=== PATIENT | female | born 1960 | race Caucasian/White ===

== ENCOUNTER → 2018-08-06 | Outpatient (CLI) | payer OTHER ==
--- NOTE | 2018-08-13 08:21 | Diagnostic Imaging Report ---
#[id number] - [id number] #BILATERAL DIGITAL SCREENING MAMMOGRAM WITH CAD: 08/06/2018 CLINICAL: Routine screening. Comparison is made to exams dated: 07/21/2017 mammogram and 01/02/2015 mammogram - [facility] [place]. Current study contains 4 films. The tissue of both breasts is heterogeneously dense. This may lower the sensitivity of mammography. Current study was also evaluated with a Computer Aided Detection (CAD) system. There are benign calcifications in the left breast. No significant masses, calcifications, or other findings are seen in either breast. There has been no significant interval change. IMPRESSION: BENIGN There is no mammographic evidence of malignancy. A 1 year screening mammogram is recommended. The patient will be notified by letter of the results. Marbin mason/debra:08/12/2018 12:24:03 Plow Mechanic: Amalia COMER(R)(M), [facility] letter sent: Compared to Prior B9 Mammogram BI-RADS: 2 Benign
== END ==
LOC: MAMMO 13:14
PROVIDERS: ATTEND Internal Medicine
DX: Z12.31 Encounter for screening mammogram for malignant neoplasm of breast (principal)
CPT/HCPCS: 77067

== ENCOUNTER → 2019-07-06 | Outpatient (CLI) | payer OTHER ==
--- NOTE | 2019-07-06 16:52 | Diagnostic Imaging Report ---
#[id number] - [id number] #UNILATERAL LEFT DIGITAL DIAGNOSTIC MAMMOGRAM WITH CAD WITH SPOT COMPRESSION AND MAGNIFICATION: 07/06/2019 Comparison is made to exams dated: 06/23/2019 mammogram, 08/06/2018 mammogram, 07/21/2017 mammogram, 07/12/2016 mammogram, 01/02/2015 mammogram and 12/28/2013 mammogram - [facility]. The tissue of the left breast is heterogeneously dense. This may lower the sensitivity of mammography. Current study was also evaluated with a Computer Aided Detection (CAD) system. There are grouped heterogeneous calcifications in the left breast at 11 o'clock middle depth. These are seen in additional views. These are increased in size from prior screening mammograms of 2017 and 2016. No other significant masses or calcifications are seen in the breast. IMPRESSION: SUSPICIOUS OF MALIGNANCY The grouped heterogeneous calcifications in the left breast are suspicious of malignancy. A stereotactic biopsy is recommended. A phone call was made to the physician's office. The patient will be contacted by the Mammography Department to schedule this appointment. CHEY BUTLER M.D. kw/:07/06/2019 15:44:17 [employer] [facility]: Amalia GONZALES)(Yamila), [facility] letter sent: Biopsy Required Mammogram BI-RADS: 4 Suspicious abnormality
== END ==
LOC: MAMMO 09:30
PROVIDERS: ATTEND Internal Medicine
DX: R92.1 Mammographic calcification found on diagnostic imaging of breast (principal)

== ENCOUNTER → 2024-06-29 | Day surgery (SDC) | payer BC, OTHER ==
[~2024-06-29] MED LIST: GABAPENTIN300 MG PO; LEVOTHYROXINE88 MCG PO; LIPITOR10 MG PO; MELOXICAM7.5 MG PO; MOUNJARO5 MG/0.5 M SC; OMEPRAZOLE40 MG PO
[2024-06-29] MEDS: LACTATED RINGER'S 1,000 ML ONE (10:41)
[2024-06-29 13:10] VITALS: BP 132/81; PULSE 68; RESP 18; O2SAT 98
== END | disposition home or self-care (01) ==
LOC: OR 10:28
PROVIDERS: ATTEND Internal Medicine Gastroenterology
DX: Z09 Encounter for follow-up examination after completed treatment for conditions other than malignant neoplasm (principal); D12.4 Benign neoplasm of descending colon; K57.30 Diverticulosis of large intestine without perforation or abscess without bleeding; K64.8 Other hemorrhoids; K21.9 Gastro-esophageal reflux disease without esophagitis; E78.5 Hyperlipidemia, unspecified; E03.9 Hypothyroidism, unspecified; Z88.8 Allergy status to other drugs, medicaments and biological substances; Z91.048 Other nonmedicinal substance allergy status; Z01.810 Encounter for preprocedural cardiovascular examination; Z79.1 Long term (current) use of non-steroidal anti-inflammatories (NSAID); Z79.85 Long-term (current) use of injectable non-insulin antidiabetic drugs; Z79.899 Other long term (current) drug therapy
CPT/HCPCS: 45385; 93005; J7121

== ENCOUNTER → 2024-08-17 | Day surgery (SDC) | payer OTHER ==
[~2024-08-17] MED LIST changes: +FENTANYL CITRATE/PF 100MCG/2 ML INJ ONE; +GLYCOPYRROLATE INJ 0.2 MG/ML VIAL ONE; +HYOSCYAMINE SULFATE 0.5 MG/ML INJ ONE; +LIDOCAINE HCL 2% LOCAL INJ 5 ML SDV VIAL INJ ONE; +METOCLOPRAMIDE HCL 10 MG/2ML VIAL ONE; +PROPOFOL IV EMULSION 0 ML IV ONE; +PROPOFOL IV EMULSION 10 MG/ML 20 ML VIAL ONE
[2024-08-17] MEDS: LACTATED RINGER'S 1,000 ML ONE (13:03)
[2024-08-17 14:57] VITALS: TEMP 97.1
[2024-08-17 15:25] VITALS: BP 119/76; PULSE 70; RESP 16; O2SAT 95
== END | disposition home or self-care (01) ==
LOC: OR 12:43
PROVIDERS: ATTEND Internal Medicine Gastroenterology
DX: Q39.4 Esophageal web (principal); K29.70 Gastritis, unspecified, without bleeding; K31.89 Other diseases of stomach and duodenum; K21.9 Gastro-esophageal reflux disease without esophagitis; Z86.0100 Personal history of colon polyps, unspecified; Z71.3 Dietary counseling and surveillance; E78.5 Hyperlipidemia, unspecified; E03.9 Hypothyroidism, unspecified; G89.29 Other chronic pain; R73.03 Prediabetes; Z88.8 Allergy status to other drugs, medicaments and biological substances; Z91.048 Other nonmedicinal substance allergy status; Z79.1 Long term (current) use of non-steroidal anti-inflammatories (NSAID); Z79.85 Long-term (current) use of injectable non-insulin antidiabetic drugs; Z68.30 Body mass index [BMI] 30.0-30.9, adult; Z80.0 Family history of malignant neoplasm of digestive organs
CPT/HCPCS: 43450; J1980; J2003; J2470; J2765